=== PATIENT | female | born 1980 | race Caucasian/White ===

== ENCOUNTER 2017-11-19 12:17 | Emergency (ER) | payer SELFPAY, MEDICAID ==
[2017-11-19] MEDS: METHYLPREDNISOLONE 125 MG INJ IV (13:42)
[2017-11-19] MEDS: CEFTRIAXONE 1 GM/50 ML (PMX) 50 ML IVPB (13:42)
[2017-11-19] MEDS: SOD CHLORIDE 0.9% 1,000 ML IV (13:43)
[2017-11-19] MEDS: ALBUTEROL 0.083% (NEB) 2.5 MG/3 ML AMP HHN (13:48)
[2017-11-19] MEDS: IPRATROPIUM (NEB) 0.5 MG/2.5 ML AMP INH (13:48)
[2017-11-19 13:51] LABS: URINE BLOOD (Dip) POC Negative (NEGATIVE); URINE GLUCOSE (Dip) POC Negative (NEGATIVE); URINE KETONES (Dip) POC Negative (NEGATIVE); URINE LEUKOCYTE EST (Dip) POC Negative (NEGATIVE); URINE NITRITE (Dip) POC Negative (NEGATIVE); URINE TOTAL PROTEIN POC Negative (NEGATIVE)
[2017-11-19 14:03] LABS: ADD MAN DIFF? NO
[2017-11-19 14:06] LABS: WHITE BLOOD COUNT 7.3 10^3/ul (4.8-10.8)
[2017-11-19 14:06] LABS: BASOPHILS % 0.4 % (0.0-2.0); EOSINOPHILS # 0.1 10^3/ul (0.0-0.5); EOSINOPHILS % 1.2 % (0.0-7.0); HEMATOCRIT 42.5 % (37.0-47.0); HEMOGLOBIN 14.1 g/dl (12.0-16.0); LYMPHOCYTES # 2.5 10^3/ul (0.8-2.9); LYMPHOCYTES % 33.6 % (15.0-51.0); MEAN CORPUSCULAR HEMOGLOBIN 29.2 pg (29.0-33.0); MEAN CORPUSCULAR HGB CONC 33.2 g/dl (32.0-37.0); MEAN PLATELET VOLUME 9.7 fl (7.4-10.4); MONOCYTE # 0.4 10^3/ul (0.3-0.9); MONOCYTES % 5.5 % (0.0-11.0); NEUTROPHIL # 4.3 10^3/ul (1.6-7.5); NEUTROPHILS % 58.9 % (39.0-77.0); PLATELET COUNT 288 10^3/UL (140-415); RED BLOOD COUNT 4.83 10^6/ul (4.20-5.40); RED CELL DISTRIBUTION WIDTH 12.8 % (11.5-14.5)
[2017-11-19 14:35] LABS: ANION GAP 13 (8-16); BLOOD UREA NITROGEN 9 mg/dl (7-20); CALCIUM 9.5 mg/dl (8.4-10.2); CARBON DIOXIDE 28 mmol/L (21-31); CHLORIDE 106 mmol/L (97-110); CREATININE 0.56 mg/dl (0.44-1.00); GLUCOSE 100 mg/dl (70-220); POTASSIUM 3.9 mmol/L (3.5-5.1); SODIUM 143 mmol/L (135-144)
== END 2017-11-19 15:31 | disposition home or self-care (01) ==
LOC: FTE 12:17
DX: J20.9 Acute bronchitis, unspecified (principal)
CPT/HCPCS: 71045; 80048; 81003; 81025; 85025; 94664; 96374; 96375; 99284-25